=== PATIENT | female | born 1995 | race Hispanic/Latino ===

== ENCOUNTER 2017-05-09 11:33 | Emergency (ER) | payer MEDICAID, OTHER ==
[2017-05-09 11:35] VITALS: BMI 36.6
[2017-05-09 11:43] VITALS: BP 122/83; PULSE 81; RESP 16; TEMP 98.3; O2SAT 100
--- NOTE | 2017-05-09 11:59 | ED PDOC ---
Arrival/HPI - General Chief Complaint: ENT Problem Time Seen by Provider: 05/09/17 11:52 Historian: Patient - History of Present Illness Narrative History of Present Illness (Text): 05/09/17 11:56 A 21 year old female, who denies any past medical history, presents to the emergency department complaining of a sore throat for the past few days. Patient notes a productive cough but denies any fever, chills, nausea, vomiting , abdominal pain, chest pain, shortness of breath or any other complaints. Patients last menstrual period was 04/20/17. Time/Duration: Other (few days) Symptom Course: Unchanged Quality: Other Context: Home Past Medical History - Provider Review Nursing Documentation Reviewed: Yes - Past History Past History: No Previous - Psychiatric Hx Psychophysiologic Disorder: No Hx Depression: No Hx Emotional Abuse: No Hx Physical Abuse: No Hx Substance Use: No - Past Surgical History Past Surgical History: No Previous - Suicidal Assessment Feels Threatened In Home Enviroment: No Family/Social History - Physician Review Nursing Documentation Reviewed: Yes Family/Social History: No Known Family HX Smoking Status: Never Smoked Hx Alcohol Use: No Hx Substance Use: No Hx Substance Use Treatment: No Allergies/Home Meds Allergies/Adverse Reactions: Allergies Penicillins Allergy (Verified 05/09/17 11:36) RASH Review of Systems - Physician Review All systems were reviewed & negative as marked: Yes - Review of Systems Constitutional: absent: Fevers, Night Sweats ENT: Sore Throat Respiratory: Cough, Sputum. absent: SOB Cardiovascular: absent: Chest Pain Gastrointestinal: absent: Abdominal Pain, Nausea, Vomiting Physical Exam Vital Signs Reviewed: Yes Vital Signs Temp Pulse Resp BP Pulse Ox 05/09/17 11:38 98.3 F 81 16 122/83 100 Temperature: Afebrile Blood Pressure: Normal Pulse: Regular Respiratory Rate: Normal Appearance: Positive for: Well-Appearing, Non-Toxic, Comfortable Pain Distress: None Mental Status: Positive for: Alert and Oriented X 3 - Systems Exam Head: Present: Atraumatic, Normocephalic Pupils: Present: PERRL Extroacular Muscles: Present: EOMI Conjunctiva: Present: Normal Mouth: Present: Moist Mucous Membranes Pharnyx: Present: EXUDATE. No: ERYTHEMA, TONSILS ENLARGED, Peritonsilar Swelling, Uvular Deviation, Muffled/Hoarse Voice, Strider Neck: Present: Normal Range of Motion Respiratory/Chest: Present: Clear to Auscultation, Good Air Exchange. No: Respiratory Distress, Accessory Muscle Use Cardiovascular: Present: Regular Rate and Rhythm, Normal S1, S2. No: Murmurs Neurological: Present: GCS=15, CN II-XII Intact, Speech Normal Skin: Present: Warm, Dry, Normal Color. No: Rashes Psychiatric: Present: Alert, Oriented x 3, Normal Insight, Normal Concentration Medical Decision Making ED Course and Treatment: 05/09/17 11:56 Impression: A 21 year old female with sore throat and cough Progress Notes: Patient reports her brother and grandmother are allergic to penicillin. Patient has never taken penicillin herself. Discussed with patient since she has never consumed penicillin there is no known allergy. Patient expresses understanding. I have discussed the plan with the patient, who expresses understanding. Patient in agreement with plan to be discharged home. Patient is stable for discharge. Patient was instructed to follow up with physician or return if symptoms worsen or new concerning symptoms arise. - Scribe Statement The provider has reviewed the documentation as recorded by the Kim Vyas Provider Scribe Attestation: All medical record entries made by the Kim were at my direction and personally dictated by me. I have reviewed the chart and agree that the record accurately reflects my personal performance of the history, physical exam, medical decision making, and the department course for this patient. I have also personally directed, reviewed, and agree with the discharge instructions and disposition. Disposition/Present on Arrival - Present on Arrival Any Indicators Present on Arrival: No History of DVT/PE: No History of Uncontrolled Diabetes: No Urinary Catheter: No History of Decub. Ulcer: No History Surgical Site Infection Following: None - Disposition Have Diagnosis and Disposition been Completed?: Yes Diagnosis: Exudative pharyngitis Disposition: HOME/ ROUTINE Disposition Time: 12:00 Condition: STABLE Discharge Instructions (ExitCare): Pharyngitis (ED) Prescriptions: Amoxicillin/Clavulanate [Augmentin 875 MG-125 MG] 1 tab PO BID #14 tab Promethazine DM [Phenergan DM Syrup] 5 ml PO TID PRN #120 dose PRN Reason: Cough Forms: [employer] (Iraqi) - Notes Notes (Text): 05/09/17 11:57 Patient clearly denies ever having an allergy to pencillin. Patient has never taken penicillin. Patient's grandmother and brother are allergic to penicillin. Discussion took place with patient to explain that she is not known to have an allergy to penicillin, and it is not to her benefit to avoid penicillin unless a documented allergy occurs. Patient understands and agrees with Rx for Augmentin.
== END 2017-05-09 12:09 | disposition home or self-care (01) ==
LOC: ED 11:33
DX: J02.9 Acute pharyngitis, unspecified (principal)

== ENCOUNTER 2017-05-10 15:53 | Emergency (ER) | payer MEDICAID, OTHER ==
[2017-05-10 16:09] VITALS: BP 128/70; PULSE 78; TEMP 97.4; O2SAT 100; BMI 32.1
[2017-05-10 16:12] VITALS: RESP 17
--- NOTE | 2017-05-10 16:21 | ED PDOC ---
Arrival/HPI - General Chief Complaint: Allergic Reaction Time Seen by Provider: 05/10/17 16:04 Historian: Patient - History of Present Illness Narrative History of Present Illness (Text): 05/10/17 16:17 21yo female present to ED requesting a different antibiotics. She was seen here yesterday and given Augmentin for strep throat. She states she developed a rash after taking the medication yesterday. The rash resolved yesterday and she did not take athe antibiotics today. She came to ED for a new medication. She denies stridor, tongue swelling, chest pain, rash, any other current symptoms. Past Medical History - Provider Review Nursing Documentation Reviewed: Yes - Past History Past History: No Previous - Cardiac Hx Cardiac Disorders: No - Pulmonary Hx Respiratory Disorders: No - Neurological Hx Neurological Disorder: No - HEENT Hx HEENT Disorder: No - Renal Hx Renal Disorder: No - Endocrine/Metabolic Hx Endocrine Disorders: No - Hematological/Oncological Hx Blood Disorders: No - Integumentary Hx Dermatological Disorder: No - Musculoskeletal/Rheumatological Hx Musculoskeletal Disorders: No - Gastrointestinal Hx Gastrointestinal Disorders: No Hx Bowel Surgery: No - Genitourinary/Gynecological Hx Genitourinary Disorders: No - Psychiatric Hx Psychophysiologic Disorder: No Hx Depression: No Hx Emotional Abuse: No Hx Physical Abuse: No Hx Substance Use: No - Past Surgical History Past Surgical History: No Previous - Anesthesia Hx Anesthesia: No - Suicidal Assessment Feels Threatened In Home Enviroment: No Family/Social History - Physician Review Nursing Documentation Reviewed: Yes Family/Social History: Unknown Family HX Smoking Status: Never Smoked Hx Alcohol Use: Yes Frequency of alcohol use: Socially Hx Substance Use: No Hx Substance Use Treatment: No Allergies/Home Meds Allergies/Adverse Reactions: Allergies Penicillins Allergy (Verified 05/10/17 16:09) RASH Review of Systems - Physician Review All systems were reviewed & negative as marked: Yes - Review of Systems Constitutional: Normal Eyes: Normal ENT: Sore Throat Respiratory: Normal Cardiovascular: Normal Gastrointestinal: Normal Genitourinary Female: Normal Musculoskeletal: Normal Skin: Normal Neurological: Normal Endocrine: Normal Hemo/Lymphatic: Normal Psychiatric: Normal Physical Exam Vital Signs Reviewed: Yes Vital Signs Temp Pulse Resp BP Pulse Ox 05/10/17 16:09 97.4 F L 78 17 128/70 100 05/10/17 16:08 97.4 F L 78 18 128/70 100 Temperature: Afebrile Blood Pressure: Normal Pulse: Regular Respiratory Rate: Normal Appearance: Positive for: Well-Appearing, Non-Toxic, Comfortable Pain Distress: None Mental Status: Positive for: Alert and Oriented X 3 - Systems Exam Head: Present: Atraumatic, Normocephalic Pupils: Present: PERRL Extroacular Muscles: Present: EOMI Conjunctiva: Present: Normal Mouth: Present: Moist Mucous Membranes. No: Drooling Pharnyx: Present: ERYTHEMA. No: EXUDATE, TONSILS ENLARGED, Peritonsilar Swelling, Uvular Deviation, Muffled/Hoarse Voice, Strider Neck: Present: Normal Range of Motion Respiratory/Chest: Present: Clear to Auscultation, Good Air Exchange. No: Respiratory Distress, Accessory Muscle Use Cardiovascular: Present: Regular Rate and Rhythm, Normal S1, S2. No: Murmurs Abdomen: Present: Normal Bowel Sounds. No: Tenderness, Distention, Peritoneal Signs Back: Present: Normal Inspection Upper Extremity: Present: Normal Inspection. No: Cyanosis, Edema Lower Extremity: Present: Normal Inspection. No: Edema Neurological: Present: GCS=15, CN II-XII Intact, Speech Normal Skin: Present: Warm, Dry, Normal Color. No: Rashes Psychiatric: Present: Alert, Oriented x 3, Normal Insight, Normal Concentration Disposition/Present on Arrival - Present on Arrival Any Indicators Present on Arrival: No History of DVT/PE: No History of Uncontrolled Diabetes: No Urinary Catheter: No History of Decub. Ulcer: No History Surgical Site Infection Following: None - Disposition Have Diagnosis and Disposition been Completed?: Yes Diagnosis: Pharyngitis Disposition: HOME/ ROUTINE Disposition Time: 16:20 Patient Plan: Discharge Condition: STABLE Discharge Instructions (ExitCare): Pharyngitis (ED) Additional Instructions: Follow up with your Doctor Return to ED for any new symptoms Prescriptions: Clindamycin [Cleocin] 150 mg PO TID #21 cap Referrals: [facility] [place] - Follow up with primary
== END 2017-05-10 16:56 | disposition home or self-care (01) ==
LOC: ED 15:53
DX: J02.9 Acute pharyngitis, unspecified (principal)

== ENCOUNTER 2017-12-30 19:04 | Emergency (ER) | payer OTHER ==
[2017-12-30 19:04] VITALS: BMI 32.1
[2017-12-30 19:40] VITALS: RESP 18; TEMP 99
--- NOTE | 2017-12-30 20:00 | ED PDOC ---
Arrival/HPI - General Chief Complaint: Finger,Hand,&Wrist Time Seen by Provider: 12/30/17 19:40 Historian: Patient - History of Present Illness Narrative History of Present Illness (Text): 12/30/17 19:40 This 22 yo female presents to this ED c/o right thumb injury x 2 days. Past Medical History - Past History Past History: No Previous - Infectious Disease Hx of Infectious Diseases: None - Cardiac Hx Cardiac Disorders: No - Pulmonary Hx Respiratory Disorders: No - Neurological Hx Neurological Disorder: No - HEENT Hx HEENT Disorder: No - Renal Hx Renal Disorder: No - Endocrine/Metabolic Hx Endocrine Disorders: No - Hematological/Oncological Hx Blood Disorders: No - Integumentary Hx Dermatological Disorder: No - Musculoskeletal/Rheumatological Hx Musculoskeletal Disorders: No - Gastrointestinal Hx Gastrointestinal Disorders: No Hx Bowel Surgery: No - Genitourinary/Gynecological Hx Genitourinary Disorders: No - Psychiatric Hx Psychophysiologic Disorder: No Hx Depression: No Hx Emotional Abuse: No Hx Physical Abuse: No Hx Substance Use: No - Past Surgical History Past Surgical History: No Previous - Anesthesia Hx Anesthesia: No - Suicidal Assessment Feels Threatened In Home Enviroment: No Family/Social History Smoking Status: Never Smoked Hx Alcohol Use: Yes Frequency of alcohol use: Socially Hx Substance Use: No Hx Substance Use Treatment: No Allergies/Home Meds Allergies/Adverse Reactions: Allergies Penicillins Allergy (Verified 05/10/17 16:09) RASH Physical Exam Vital Signs Temp Pulse Resp BP Pulse Ox 12/30/17 19:36 99 F 83 18 125/62 100 Medical Decision Making ED Course and Treatment: 12/30/17 20:17 Re-evaluation. Patient feels better. Discussed results and plan with patient who expresses understanding. All questions answered and there is agreement with the plan to discharge home with instructions. Patient stable for discharge. Return if symptoms persist or worsen. Re-evaluation Time: 20:17 Reassessment Condition: Re-examined, Improved Disposition/Present on Arrival - Present on Arrival Any Indicators Present on Arrival: No History of DVT/PE: No History of Uncontrolled Diabetes: No Urinary Catheter: No History of Decub. Ulcer: No History Surgical Site Infection Following: None - Disposition Have Diagnosis and Disposition been Completed?: Yes Diagnosis: Subungual hematoma Disposition: HOME/ ROUTINE Disposition Time: 20:18 Patient Plan: Discharge Condition: GOOD Additional Instructions: Call private doctor for follow up visit in 1-2 days. Clean thumb with soap and water. Take over the counter Motrin for pain as needed. Return to emergency if symptoms worsen. Referrals: [facility] [Outside] - Follow up with primary [facility] [Outside] - Follow up with primary Forms: [employer] (Lithuanian)
[2017-12-30 20:31] VITALS: BP 112/70; PULSE 72; O2SAT 98
== END 2017-12-30 20:28 | disposition home or self-care (01) ==
LOC: ED 19:04
DX: S60.011A Contusion of right thumb without damage to nail, initial encounter (principal); X58.XXXA Exposure to other specified factors, initial encounter